=== PATIENT | male | born 1975 | race Caucasian/White ===

== ENCOUNTER 2017-02-19 16:41 | Emergency (ER) | payer SELFPAY ==
[2017-02-19 16:57] VITALS: BP 164/87
--- NOTE | 2017-02-19 17:33 | RAD ---
INDICATION: Headaches after fall COMPARISON: None TECHNIQUE: Noncontrast axial source images were acquired from the skull base to the vertex. FINDINGS: Ventricles/sulci: The ventricles and cisterns are normal in size and configuration for age. Brain parenchyma: There is no focal parenchymal finding, evidence of intracranial mass, or intracranial mass effect. Intracranial hemorrhage:None. Extra-axial spaces: There are no abnormal extra axial fluid collections or evidence of extra-axial mass. Calvarium: There is no calvarial fracture or other calvarial abnormality. Scalp: There is no evidence of scalp or extracalvarial soft tissue abnormality. Paranasal sinuses/mastoid: There are findings of chronic sinusitis. The mastoid air cells are clear. Other: None. IMPRESSION: No acute intracranial findings. Sinusitis.
--- NOTE | 2017-02-19 17:38 | RAD ---
INDICATION: Left elbow injury COMPARISON: None TECHNIQUE: AP, lateral, and oblique views were obtained. FINDINGS: The bony structures, joint spaces, and soft tissues are normal for age. IMPRESSION: NEGATIVE EXAMINATION.
[2017-02-19] MEDS ORDERED: Ibuprofen TAB* 400 MG PO ONE (17:45)
--- NOTE | 2017-02-19 18:06 | UC ---
Julianne Gilliam Thomas, scribed for Nakul Kim MD on 02/19/17 at 1709 . Headache HPI - HPI Summary HPI Summary: The patient is a 41 year old male presenting to Urgent Care complaining of headache status post a fall that occurred earlier today in which he slipped on the ice and struck the back of his head. He vomited after the fall. He also complains of left elbow pain resulting from the fall. The headache is rated 5/ 10 and the elbow pain is rated 8/10. Patient denies loss of consciousness, visual changes, shortness of breath, and palpitations. He is not on any blood thinners. - History Of Current Complaint Chief Complaint: UCHeadache Stated Complaint: HEAD AND ELBOW INJURY Time Seen by Provider: 02/19/17 16:58 Hx Obtained From: Patient Onset/Duration: Lasting Hours - earlier today, Still Present Currently Pain Is: Current Pain Scale(0-10)= - 5 Pain Intensity: 8 - left elbow Pain Scale Used: 0-10 Numeric Timing: Constant Allevating Factor(s): Nothing Associated Signs And Symptoms: Positive: Vomiting, Other (Noted In Comments) - Left elbow pain; NEGATIVE: LOC, visual changes, SOB, palpitations. Negative: Fever - Allergies/Home Medications Allergies/Adverse Reactions: Allergies Allergy/AdvReac Type Severity Reaction Status Date / Time Bee Venom Allergy Anaphylatic Verified 01/28/16 12:51 Shock PMH/Surg Hx/FS Hx/Imm Hx Previously Healthy: Yes - NEGATIVE: asthma, DM - Surgical History Surgical History: Yes Surgery Procedure, Year, and Place: HAND AND KNEE SURGERIES - Family History Known Family History: Positive: Cardiac Disease, Hypertension - Social History Occupation: Employed Full-time Alcohol Use: Rare Substance Use Type: None Smoking Status (MU): Light Every Day Tobacco Smoker Type: Cigars Amount Used/How Often: occasional use Have You Smoked in the Last Year: Yes - Immunization History Most Recent Influenza Vaccination: Not the Season Review of Systems Gastrointestinal: Vomiting Musculoskeletal: Other: - Left elbow pain Neurological: Headache Is Patient Immunocompromised?: No All Other Systems Reviewed And Are Negative: Yes Physical Exam Triage Information Reviewed: Yes Vital Signs: Initial Vital Signs Temp 99 F 02/19/17 16:51 Pulse 86 02/19/17 16:51 Resp 20 02/19/17 16:51 BP 164/87 02/19/17 16:51 Pulse Ox 98 02/19/17 16:51 Vital Signs Reviewed: Yes - Additional Comments VITAL SIGNS: Reviewed. GENERAL: Patient is a well-developed and nourished male who is lying comfortable in the stretcher. Patient is not in any acute respiratory distress. HEAD AND FACE: Normocephalic EYES: PERRLA, EOMI x 2. EARS: Hearing grossly intact. MOUTH: Oropharynx within normal limits. NECK: Supple, trachea is midline, no adenopathy, no JVD, no carotid bruit. CHEST: Symmetric, no tenderness at palpation LUNGS: Clear to auscultation bilaterally. No wheezing or crackles. CVS: Regular rate and rhythm, S1 and S2 present, no murmurs or gallops appreciated. ABDOMEN: Soft, non-tender. Bowel sounds are normal. No abdominal abnormal pulsations. EXTREMITIES: He has tenderness in the left elbow but he has full ROM. There is no ecchymosis, hematoma, or deformity in the extremities. There are good pulses and good capillary refill. Full ROM in all major joints, no edema, no cyanosis or clubbing. NEURO: Alert and oriented x 3. No acute neurological deficits. Speech is normal and follows commands. SKIN: Dry and warm. There is no ecchymosis or hematoma. Diagnostics - Laboratory Diagnostic Studies Completed/Ordered: CT Brain. Interpreted by radiologist. Impression: "No acute intracranial findings. Sinusitis." Dr. Kim has reviewed this report. - Radiology XR Left Elbow Xray Interpretation: No Acute Changes - NEGATIVE EXAMINATION. Dr. Kim has reviewed this report. Radiology Interpretation Completed By: Radiologist Headache Course/Dx - Course Course Of Treatment: The patient is a 41 year old male presenting to Urgent Care complaining of headache status post a fall that occurred earlier today in which he slipped on the ice and struck the back of his head. He vomited after the fall. He also complains of left elbow pain resulting from the fall. The headache is rated 5/10 and the elbow pain is rated 8/10. Patient denies loss of consciousness, visual changes, shortness of breath, and palpitations. He is not on any blood thinners. CT Brain shows no acute intracranial findings but sinusitis. Radiograph of the left elbow shows negative examination. I offered the patient ibuprofen, but he declines analgesics. The patient is diagnosed with accidental fall, elbow contusion, and head contusion. The patient will be discharged home and instructed to follow up with primary care. - Differential Dx/Diagnosis Differential Diagnosis/HQI/PQRI: Subdural Hematoma, Subarachnoid Hemorrhage, Temporal Arteritis, Tension Headache - elbow fracture Provider Diagnoses: Accidental fall, elbow contusion, head contusion Discharge - Discharge Plan Condition: Stable Disposition: HOME Patient Education Materials: Contusion in Adults (ED), Fall Prevention (ED) Referrals: Carolina Alicia PA [Primary Care Provider] - 3 Days Additional Instructions: Follow up with your primary care physician in 3 days. Return to urgent care for any new or worsening symptoms. The documentation as recorded by the Julianne salinas Thomas accurately reflects the service I personally performed and the decisions made by Julio crawley Walter, MD.
== END 2017-02-19 17:53 | disposition home or self-care (01) ==
LOC: UCEAST 16:41
DX: S00.93XA Contusion of unspecified part of head, initial encounter (principal); S50.02XA Contusion of left elbow, initial encounter; E11.9 Type 2 diabetes mellitus without complications; F17.210 Nicotine dependence, cigarettes, uncomplicated; J32.9 Chronic sinusitis, unspecified; Z91.030 Bee allergy status; W00.0XXA Fall on same level due to ice and snow, initial encounter; Y92.9 Unspecified place or not applicable
CPT/HCPCS: 70450; 99211; G0463

== ENCOUNTER 2018-04-06 19:22 | Emergency (ER) | payer MEDICAID, OTHER ==
[2018-04-06 20:32] VITALS: BP 158/87
--- NOTE | 2018-04-06 20:44 | UC ---
UC General HPI - HPI Summary HPI Summary: pt is c/o pain in his L hand, he points to the area below his thumb. no hx of injury. states interferes with his pinching negative cutter between the thumb and index fingers and with playing games on the phone. prior tendon avulsion of L thumb years ago that was repaired already left that thumb with a weak pinch negative cutter. tried an occasional dose of motrin, no relief. - History of Current Complaint Chief Complaint: UCUpperExtremity Stated Complaint: LEFT THUMB CONCERN Time Seen by Provider: 04/06/18 20:35 Hx Obtained From: Patient Timing: Constant Pain Intensity: 8 Associated Signs & Symptoms: Negative: Edema, Fever - Allergy/Home Medications Allergies/Adverse Reactions: Allergies Allergy/AdvReac Type Severity Reaction Status Date / Time bee venom protein (honey bee) Allergy Anaphylatic Verified 04/06/18 20:32 Shock PMH/Surg Hx/FS Hx/Imm Hx Previously Healthy: Yes - Surgical History Surgical History: Yes Surgery Procedure, Year, and Place: HAND AND KNEE SURGERIES - Family History Known Family History: Positive: Cardiac Disease, Hypertension - Social History Lives: With Family Alcohol Use: Rare Substance Use Type: None Smoking Status (MU): Light Every Day Tobacco Smoker Type: Cigars Amount Used/How Often: occasional use Have You Smoked in the Last Year: Yes - Immunization History Most Recent Influenza Vaccination: Not the Season Review of Systems All Other Systems Reviewed And Are Negative: Yes Constitutional: Positive: Negative Skin: Positive: Negative Eyes: Positive: Negative ENT: Positive: Negative Respiratory: Positive: Negative Cardiovascular: Positive: Negative Gastrointestinal: Positive: Negative Genitourinary: Positive: Negative Motor: Positive: Negative Neurovascular: Positive: Negative Neurological: Negative: Paresthesia, Numbness Psychological: Positive: Negative Physical Exam Triage Information Reviewed: Yes Appearance: Well-Appearing Vital Signs: Initial Vital Signs Temp 97.6 F 04/06/18 20:29 Pulse 73 04/06/18 20:29 Resp 16 04/06/18 20:29 BP 158/87 04/06/18 20:29 Pulse Ox 97 04/06/18 20:29 Vital Signs Reviewed: Yes Eyes: Positive: Conjunctiva Clear ENT: Positive: Normal ENT inspection Neck: Positive: Supple, Nontender, No Lymphadenopathy Respiratory: Positive: Lungs clear Cardiovascular: Positive: RRR Abdomen Description: Positive: Nontender Bowel Sounds: Positive: Present Musculoskeletal: Positive: Other: - L hand: no gross deformity, swelling or discoloration. tender between base of thumb and index fingers plus hand adjacent to the thumb all on dorsal surface. Pincher negative cutter of thumb weak(pt notes chronic). Rest of hand has full s/v/m function. Negative Finklestein test. Neurological: Positive: Alert Psychological: Positive: Age Appropriate Behavior Skin Exam: Normal Skin: Negative: Rashes Diagnostics - Radiology No standard instances Radiology Interpretation Completed By: ED Physician - OA base of 1st metacarpal( not thumb) Course/Dx - Course Course Of Treatment: denies hx htn, states does not go to doctor. states will get him a f/u appt for a BP recheck. - Differential Dx - Multi-Symptom Differential Diagnoses: Other - OA, tendinitis. No concern for fx/infection/ carpal tunnel. - Diagnoses Provider Diagnosis: Osteoarthritis Discharge - Sign-Out/Discharge Documenting (check all that apply): Patient Departure All imaging exams completed and their final reports reviewed: No - Discharge Plan Condition: Stable Disposition: HOME Prescriptions: Naproxen TAB* [Naprosyn 375 mg TAB*] 375 mg PO BID 5 Days #10 tab Patient Education Materials: Osteoarthritis (ED) Referrals: Alexandr Cortez MD [Primary Care Provider] - As Soon As Possible Preston Quan MD [Medical Doctor] - 5 Days Additional Instructions: WEAR THE THUMB SPLINT DURING THE DAY. - Billing Disposition and Condition Condition: STABLE Disposition: Home
--- NOTE | 2018-04-07 11:48 | UC ---
- EKG/XRAY/CT XRAY: hand - mild osteoarthritic changes. No fracture Course/Dx - Diagnoses Provider Diagnoses: Osteoarthritis Discharge - Sign-Out/Discharge Documenting (check all that apply): Post-Discharge Follow Up All imaging exams completed and their final reports reviewed: Yes - Discharge Plan Condition: Stable Disposition: HOME Prescriptions: Naproxen TAB* [Naprosyn 375 mg TAB*] 375 mg PO BID 5 Days #10 tab Patient Education Materials: Osteoarthritis (ED) Referrals: Preston Quan MD [Medical Doctor] - 5 Days Alexandr Cortez MD [Primary Care Provider] - As Soon As Possible Additional Instructions: WEAR THE THUMB SPLINT DURING THE DAY. - Billing Disposition and Condition Condition: STABLE Disposition: Home
== END 2018-04-06 21:07 | disposition home or self-care (01) ==
LOC: UCCORT 19:22
DX: M19.042 Primary osteoarthritis, left hand (principal); F17.210 Nicotine dependence, cigarettes, uncomplicated; Z91.030 Bee allergy status
CPT/HCPCS: 99213; G0463

== ENCOUNTER 2018-07-07 20:50 | Emergency (ER) | payer OTHER ==
[2018-07-07 21:17] VITALS: BP 116/85
--- NOTE | 2018-07-07 21:30 | UC ---
Knee Pain HPI - HPI Summary HPI Summary: L knee pain that suddenly happened today. Has some swelling and its painful to touch. denies redness. 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 he has had several broken bones and repairs with screws in his L leg. Painful to walk and he limps. does not recall a fall or recent injury. - History of Current Complaint Chief Complaint: UCLowerExtremity Stated Complaint: LEFT KNEE PAIN Time Seen by Provider: 07/07/18 21:13 Hx Obtained From: Patient Onset/Duration: Sudden Onset Pain Intensity: 8 Pain Scale Used: 0-10 Numeric Character: Throbbing, Stiffness Alleviating Factor(s): Rest Associated Signs And Symptoms: Positive: Swelling. Negative: Redness, Bruising , Fever, Weakness, Numbness, Tingling - Allergies/Home Medications Allergies/Adverse Reactions: Allergies Allergy/AdvReac Type Severity Reaction Status Date / Time bee venom protein (honey bee) Allergy Anaphylatic Verified 07/07/18 21:18 Shock PMH/Surg Hx/FS Hx/Imm Hx - Additional Past Medical History Additional PMH: ARTHRITIS Previously Healthy: Yes - Surgical History Surgical History: Yes Surgery Procedure, Year, and Place: HAND AND KNEE SURGERIES. L knee fx repair of tib/fib - Family History Known Family History: Positive: Cardiac Disease, Hypertension - Social History Alcohol Use: Weekly Substance Use Type: None Smoking Status (MU): Former Smoker Type: Cigarettes, Cigars Amount Used/How Often: occasional use Length of Time of Smoking/Using Tobacco: since age 15 Have You Smoked in the Last Year: Yes When Did the Patient Quit Smoking/Using Tobacco: 2 weeks ago - Immunization History Most Recent Influenza Vaccination: Not the Season Review of Systems All Other Systems Reviewed And Are Negative: Yes Constitutional: Negative: Fever Skin: Negative: Bruising Respiratory: Positive: Negative Cardiovascular: Positive: Negative Neurovascular: Negative: Decreased Sensation Musculoskeletal: Positive: Arthralgia - L knee, Edema - L knee Neurological: Negative: Weakness, Paresthesia, Numbness Physical Exam Triage Information Reviewed: Yes Appearance: Well-Appearing Vital Signs: Initial Vital Signs Temp 99.1 F 07/07/18 21:09 Pulse 90 07/07/18 21:09 Resp 16 07/07/18 21:09 BP 116/85 07/07/18 21:09 Pulse Ox 96 07/07/18 21:09 Vital Signs Reviewed: Yes Cardiovascular: Positive: Pulses Normal - pedal Musculoskeletal: Positive: Strength Intact, ROM Intact - at L knee; assoc w/ pain, Edema @ - at L lateral, bogginess, Other: - limping w/ pain. tenderness at L lateral aspect of knee but no redness or induration. Neurological: Positive: Alert, Other: - able to feel light touch on L leg Skin: Positive: Other - no redness at L knee Knee Pain Course/Dx - Course Course Of Treatment: Sudden L knee pain and mild swelling in a pt w hx of osteoarthritis in his L knee. Has had several injuries and procedures in that knee he likely is having an arthritic exacerbation. on XRAY hardware is noted with little joint space and some shifting. Will tx short term pain but pt. should lreally see ortho specialist for ongoing management. advised rest of the knee to prevent re- injuring. Not thought to be infectious source. neurovascularly intact. reviewed old xrays. - Differential Dx/Diagnosis Differential Diagnosis/HQI/PQRI: Contusion, Dislocation, Sprain, Strain, Tendonitis Provider Diagnosis: Left knee pain Discharge - Sign-Out/Discharge Documenting (check all that apply): Patient Departure All imaging exams completed and their final reports reviewed: No - Discharge Plan Condition: Good Disposition: HOME Prescriptions: Capsaicin 0.025% CREAM* [Zostrix 0.025% CREAM*] 1 applic TOPICAL BID #1 tu Ibuprofen [Ibu] 600 mg PO TID 10 Days #30 tablet Patient Education Materials: Osteoarthritis (ED) Forms: *Work Release Referrals: Mary Murcia MD [Medical Doctor] - Nik ANGUIANO,Spencer Garcia [Medical Doctor] - 7 Days (severe osteoarthritis w/ acute exacerbation in a pt. w/ several procedures done to L knee. he is a zafar) Additional Instructions: PLEASE FOLLOW UP WITH MARY MURCIA IN [facility]. - Billing Disposition and Condition Condition: GOOD Disposition: Home
[2018-07-07] MEDS ORDERED: Ibuprofen TAB* 600 MG PO ONE (21:38)
--- NOTE | 2018-07-08 11:33 | UC ---
- Progress Note Progress Note: Final x-ray reading reviewed. Postoperative changes. No definite fracture is noted. Degenerative changes lateral compartment. Consistent with UC provider read. No change in plan of care. Course/Dx - Diagnoses Provider Diagnoses: Left knee pain Discharge - Sign-Out/Discharge Documenting (check all that apply): Post-Discharge Follow Up All imaging exams completed and their final reports reviewed: Yes - Discharge Plan Condition: Good Disposition: HOME Prescriptions: Capsaicin 0.025% CREAM* [Zostrix 0.025% CREAM*] 1 applic TOPICAL BID #1 tu Ibuprofen [Ibu] 600 mg PO TID 10 Days #30 tablet Patient Education Materials: Osteoarthritis (ED) Forms: *Work Release Referrals: Mary Murcia MD [Medical Doctor] - Nik ANGUIANO,Spencer Garcia [Medical Doctor] - 7 Days (severe osteoarthritis w/ acute exacerbation in a pt. w/ several procedures done to L knee. he is a zafar) Additional Instructions: PLEASE FOLLOW UP WITH MARY MURCIA IN [facility]. - Billing Disposition and Condition Condition: GOOD Disposition: Home
== END 2018-07-07 22:06 | disposition home or self-care (01) ==
LOC: UCCORT 20:50
DX: M25.562 Pain in left knee (principal); M19.90 Unspecified osteoarthritis, unspecified site; Z91.030 Bee allergy status; Z87.891 Personal history of nicotine dependence
CPT/HCPCS: 99212; A9270-GY; G0463

== ENCOUNTER 2019-03-16 09:52 | Emergency (ER) | payer SELFPAY ==
[2019-03-16] MEDS ORDERED: Ondansetron ODT TAB* 4 MG SL ONE ×2 (10:25→11:06)
--- NOTE | 2019-03-16 10:29 | UC ---
General HPI - HPI Summary HPI Summary: 4 days ago started with N/V/D. +Sick contacts. Concerned because diarrhea has resolved but he still remains nauseated and dry heaves. He denies any focal abdominal pain. No bloating. Is able to take sips but states he is starving and wants to get over this and get back to work. No fever. No bloating. Meds: reviewed No lightheadedness or dizziness - History of Current Complaint Chief Complaint: UCGI Stated Complaint: VOMITING/BODY ACHES Time Seen by Provider: 03/16/19 10:14 Pain Intensity: 0 - Allergy/Home Medications Allergies/Adverse Reactions: Allergies Allergy/AdvReac Type Severity Reaction Status Date / Time bee venom protein (honey bee) Allergy Anaphylatic Verified 03/16/19 10:13 Shock PMH/Surg Hx/FS Hx/Imm Hx Previously Healthy: Yes - Surgical History Surgical History: Yes Surgery Procedure, Year, and Place: HAND AND KNEE SURGERIES. L knee fx repair of tib/fib - Family History Known Family History: Positive: Cardiac Disease, Hypertension - Social History Alcohol Use: Occasionally Substance Use Type: None Smoking Status (MU): Former Smoker Type: Cigarettes, Cigars Amount Used/How Often: occasional use Length of Time of Smoking/Using Tobacco: since age 15 Have You Smoked in the Last Year: Yes When Did the Patient Quit Smoking/Using Tobacco: 2 weeks ago - Immunization History Most Recent Influenza Vaccination: Not the 2014/2015 Season Review of Systems All Other Systems Reviewed And Are Negative: Yes Gastrointestinal: Positive: Vomiting, Nausea Physical Exam Triage Information Reviewed: Yes Appearance: Well-Appearing Vital Signs: Initial Vital Signs Temp 98.7 F 03/16/19 10:11 Pulse 77 03/16/19 10:11 Resp 16 03/16/19 10:11 BP 125/78 03/16/19 10:11 Pulse Ox 96 03/16/19 10:11 ENT: Positive: Normal ENT inspection Respiratory: Positive: Lungs clear, Normal breath sounds Cardiovascular: Positive: RRR, No Murmur Abdomen Description: Positive: Other: - hyperactive bowel sounds, soft, nondistended, diffuse pain, no guarding Course/Dx - Course Course Of Treatment: This is a 43 yr old with N/v/d Zofran 4 mg SL given PO challenge failed Zofran 4 mg - total of 8 given STill nauseated with dry heaving Gave IVF 1L LR with Reglan IV 10 mg PO challenge - perked up and tolerated gingerale without any further emesis. States he was feeling much better. Plan REcommend zofran as needed as directed for Nausea Recommend bland diet - advance as tolerated Continue to drink fluids If symptoms persist or worsen, recommend returning to urgent care or go to the ER - Diagnoses Provider Diagnosis: Gastroenteritis Discharge ED - Sign-Out/Discharge Documenting (check all that apply): Patient Departure All imaging exams completed and their final reports reviewed: No Studies - Discharge Plan Condition: Fair Disposition: HOME Prescriptions: Ondansetron ODT TAB* [Zofran 4 MG Odt TAB*] 4 mg PO Q6H PRN #10 tab.odt PRN Reason: Nausea Patient Education Materials: Gastroenteritis (ED) Forms: *Work Release Referrals: Alexandr Cortez MD [Primary Care Provider] - Additional Instructions: REcommend zofran as needed as directed for Nausea Recommend bland diet - advance as tolerated Continue to drink fluids If symptoms persist or worsen, recommend returning to urgent care or go to the ER - Billing Disposition and Condition Condition: FAIR Disposition: Home
[2019-03-16] MEDS ORDERED: Metoclopramide IV* 5 MG/ML 2 ML VIAL IV SLOW PU ONE (11:46)
[2019-03-16] MEDS ORDERED: Lactated Ringers 1000 ML Bag* 1,000 ML IV SCH ×2 (11:47→11:49)
[2019-03-16] MEDS ORDERED: Lactated Ringers 1000 ML Bag* 1,000 ML IV ONE (11:54)
[2019-03-16 12:55] VITALS: BP 127/81
== END 2019-03-16 13:26 | disposition home or self-care (01) ==
LOC: UCCORT 09:52
DX: K52.9 Noninfective gastroenteritis and colitis, unspecified (principal); Z87.891 Personal history of nicotine dependence; Z91.030 Bee allergy status
CPT/HCPCS: 96360; 96375; 99212; A9270-GY; G0463; J2765